=== PATIENT | male | born 1960 | race Caucasian/White ===

== ENCOUNTER → 2018-11-12 | Outpatient (CLI) | payer OTHER ==
--- NOTE | 2018-11-12 11:58 | US ---
EXAM DESCRIPTION: Venous,Lower Extremity RT: ULTRASOUND. CLINICAL HISTORY: EDEMA OF LEG R60.0 COMPARISON: None Available. TECHNIQUE: Tucker-scale and doppler sonographic evaluation of the deep venous system of the right lower extremity. FINDINGS: Doppler evaluation shows normal color flow and normal phasicity and augmentation of the right common femoral vein, femoral vein, popliteal vein, greater saphenous vein, peroneal, and posterior tibial vein. The right lower extremity deep veins were completely compressible; normal occlusion with transducer pressure. Tucker-scale survey showed no echogenic thrombus within these veins. Edema is noted in the adipose tissue right calf. No distinct cyst or dominant solid mass. No parenchymal edema or large calcifications. No abnormal vascularity. IMPRESSION: 1. Duplex ultrasound evaluation of the right lower extremity deep venous system showing no evidence of thrombosis. 2. Edema in the adipose tissue right calf. No cyst. Electronically signed by: Reza Ford MD 11/12/2018 11:55 AM [employer]
== END ==
LOC: US 11:02
PROVIDERS: ATTEND Orthopaedic Surgery Sports Medicine
DX: R60.0 Localized edema (principal)